=== PATIENT | male | born 1990 | race Caucasian/White ===

== ENCOUNTER 2016-07-26 18:13 | Emergency (ER) | payer SELFPAY ==
[2016-07-26 22:02] VITALS: BP 138/88
--- NOTE | 2016-07-26 22:04 | Emergency Department Report ---
HPI - General Chief Complaint: Extremity Problem,Nontraumatic - HPI HPI: 25-year-old male comes in today for pain in the left foot and ankle. Patient reports that it started about 3 weeks ago and has progressively getting worse. Patient reports that he has pain in his arch coming up into the joint. He denies any swelling. He does admit that he stands for long. The time N booze to have no arch area. He reports that the pain is sharp in the ankle and single and on for 3 to half weeks he has no primary care provider. ED Past Medical Hx - Past Medical History Previous Medical History?: No - Surgical History Past Surgical History?: No - Social History Smoking Status: Current Every Day Smoker Substance Use Type: None ED Review of Systems ROS: Stated complaint: LT ANKLE PAIN Other details as noted in HPI Constitutional: denies: chills, fever Respiratory: denies: cough, shortness of breath, wheezing Cardiovascular: as per HPI Endocrine: no symptoms reported Gastrointestinal: denies: abdominal pain, nausea, diarrhea Genitourinary: denies: urgency, dysuria Musculoskeletal: arthralgia Physical Exam - Physical Exam Vital Signs: Vital Signs 07/26/16 18:53 Temperature 98.5 F Pulse Rate 87 Respiratory 16 Rate Blood Pressure 115/59 O2 Sat by Pulse 96 Oximetry Physical Exam: GENERAL: Alert and oriented x3, no apparent distress, Normal Gait, atraumatic. Patient's requesting days off of work HEAD: Head is normocephalic and a-traumatic. EYES: Extra ocular muscles are intact. Pupils are equal, round, and reactive to light and accommodation. EXTREMITIES/MUSCULOSKELETAL: No cyanosis, clubbing, rash, lesions or edema. Full ROM bilaterally. UE/LE Pulses 2+ bilaterally. LE and UE 5+ strength bilaterally pain palpated left arch and medial aspect of the ankle. Able to move toes without any pain able to dorsiflex and extend with minimal pain. There is no swelling appreciated capillary refills are less than 2 seconds no pain elicited with pointing the great toe or flexing the great toe NEUROLOGIC: No focal Deficit, Cranial nerves II through XII are grossly intact. No loss of sensation, No facial droop, . PSYCHIATRIC: Mood is congruent with affect, denies suicidal or homicidal ideations. SKIN: Warm and dry, No lesions, No ulceration or induration present Body Four View: 1 - Pain that starts in the left arch and radiates to the ankle. ED Course Vital Signs 07/26/16 18:53 Temperature 98.5 F Pulse Rate 87 Respiratory 16 Rate Blood Pressure 115/59 O2 Sat by Pulse 96 Oximetry ED Medical Decision Making - Medical Decision Making Patient's been evaluated by this provider in fast track. Discussed with patient that most likely he is having pain in his left arch and ankle secondary for long periods of standing . Discussed with patient that he needs to use proper arch support. Discussed with patient he can wrap his foot over a frozen water bottle that can help alleviate some of the pain. Patient verbalized understanding. He was offered pain medication and declines medication at this time. Critical care attestation.: If time is entered above; I have spent that time in minutes in the direct care of this critically ill patient, excluding procedure time. ED Disposition Clinical Impression: Arch pain of left foot Disposition: DISCHARGED TO HOME OR SELFCARE Is pt being admited?: No Does the pt Need Aspirin: No Condition: Stable Additional Instructions: Is very important for you to follow up with the primary care provider we will refer you to 1. Please get shoes that have arch support or he can purchase R support at the foot section of [facility]. Recommend ice bottle to rub under her foot. Referrals: PRIMARY CARE, [Primary Care Provider] - 3-5 Days Forms: Work/School Release Form(ED), Accompanied Note
== END 2016-07-26 22:12 | disposition home or self-care (01) ==
LOC: ED 18:13
DX: M25.572 Pain in left ankle and joints of left foot (principal); F17.200 Nicotine dependence, unspecified, uncomplicated
CPT/HCPCS: 99283